=== PATIENT | female | born 1970 | race Caucasian/White ===

== ENCOUNTER → 2019-02-12 | Outpatient (CLI) | payer BC, OTHER ==
--- NOTE | 2019-02-12 15:15 | REP ---
Clinical: Shortness of breath . Comparison: None . Technique: PA and lateral. Findings: The mediastinum and cardiac silhouette are normal. The lung silverman are clear and without acute consolidation, effusion, or pneumothorax. The skeletal structures are intact and normal. Impression: 1. No acute cardiopulmonary process. Electronically Signed by Jan Henry MD 02/12/2019 03:06 P
== END ==
LOC: M LRY 14:51
PROVIDERS: ATTEND Nurse Practitioner Family
DX: R06.02 Shortness of breath (principal)

== ENCOUNTER → 2020-08-19 | Outpatient (CLI) | payer BC, OTHER ==
--- NOTE | 2020-08-20 06:41 | REP ---
INDICATION: NICOTINE DEPENDENCE, CIGARETTES, W OTH DISORDERS COMPARISON: None. TECHNIQUE: Axial noncontrast images from the thoracic inlet to the upper abdomen using low-dose lung screening technique (LDCT). FINDINGS: Lung silverman suggest mild emphysematous changes along with minimal primarily right middle lobe and lingular scarring. No acute consolidation, suspicious nodule, or mass lesion. No pleural effusion or pneumothorax. Tracheobronchial tree is patent. IMPRESSION: Lung-RADS category 1. No suspicious nodule or mass lesion. Management recommendations include annual low-dose CT surveillance. <Electronically signed by Jan Henry > 08/20/20 [id number]
== END ==
LOC: M RAD 11:23
PROVIDERS: ATTEND Physician Assistant
DX: F17.218 Nicotine dependence, cigarettes, with other nicotine-induced disorders (principal)

== ENCOUNTER → 2021-09-15 | Outpatient (CLI) | payer BC, OTHER | LOC: M RAD 13:15 | PROVIDERS: ATTEND Physician Assistant ==

== ENCOUNTER → 2022-10-16 | Outpatient (CLI) | payer BC, OTHER | LOC: M RAD 10:59 | PROVIDERS: ATTEND Physician Assistant | DX: Z12.2 Encounter for screening for malignant neoplasm of respiratory organs (principal); F17.218 Nicotine dependence, cigarettes, with other nicotine-induced disorders ==

== ENCOUNTER → 2023-05-02 | Outpatient (REF) | LOC: M SLEEP HO 10:00 | PROVIDERS: ATTEND Student in an Organized Health Care Education/Training Program | DX: G47.33 Obstructive sleep apnea (adult) (pediatric) (principal) ==